=== PATIENT | female | born 1955 | race African-American/Black ===

== ENCOUNTER 2018-06-30 22:14 | Emergency (ER) | payer MEDICAID ==
[~2018-06-30] VITALS: Ht 162.6 cm; Wt 78.6 kg
[~2018-06-30 22:14] MED LIST: ASPIRIN; ATENOLOL; HCTZ; LORA1TAB; TYLENOL/CODEINE
[2018-06-30] MEDS ORDERED: MORPHINE SULFATE 10 MG/ML CPJ IM ONE (23:00)
[2018-07-01] MEDS ORDERED: KETOROLAC 60MG/2ML VIAL IM ONE (00:15)
[2018-07-01 01:26] VITALS: BP 139/91
== END 2018-07-01 01:42 | disposition home or self-care (01) ==
LOC: ER 23:46
DX: M25.522 Pain in left elbow (principal); I10 Essential (primary) hypertension; F12.10 Cannabis abuse, uncomplicated; Z98.890 Other specified postprocedural states; Z88.0 Allergy status to penicillin; Z79.82 Long term (current) use of aspirin
CPT/HCPCS: 73070; 96372; 99284; J1885; J2270; A4565

== ENCOUNTER 2021-10-14 17:26 | Inpatient (IN) | payer MEDICARE, MEDICAID ==
[~2021-10-14] VITALS: Ht 162.6 cm; Wt 77.0 kg
[2021-10-14] MEDS ORDERED: SODIUM CHLORIDE 0.9% 1000ML BAG (SEPSIS BOLUS) IV ONE (22:45)
[2021-10-14 23:34] LABS: BASOPHILS % 0.9 % (0.0-2.0); EOSINOPHILS % 0.9 % (0.0-5.0); HEMATOCRIT. 40.6 % (36.0-48.0); HEMOGLOBIN. 13.2 g/dL (12.0-16.0); LYMPHOCYTES % 16.7 % (20.0-50.0); MEAN CORPUSCULAR HEMOGLOBIN 26.3 pg (28.0-32.0); MEAN PLATELET VOLUME 7.4 fl (7.4-10.4); MONOCYTES % 7.4 % (2.0-8.0); NEUTROPHILS % 74.1 % (40.0-76.0); PLATELET 404 x1000/uL (130-400); RED BLOOD CELL COUNT 5.01 mill/uL (4.2-5.4); RED CELL DISTRIBUTION WIDTH 15.2 % (11.6-14.6)
[2021-10-14 23:38] LABS: CHLORIDE 105 mEq/L (98-107)
[2021-10-15 02:54] LABS: CLARITY URINE CLEAR (CLEAR); COLOR URINE YELLOW (YELLOW); KETONES URINE 3+ (NEGATIVE); LEUKOCYTE ESTERASE URINE 3+ (NEGATIVE); NITRITE URINE NEGATIVE (NEGATIVE); OCCULT BLOOD URINE NEGATIVE (NEGATIVE); PROTEIN URINE NEGATIVE (NEGATIVE); SPECIFIC GRAVITY URINE 1.014 (1.005-1.030)
[2021-10-15] MEDS ORDERED: ONDANSETRON HCL 4MG/2ML INJ IV PRN (08:45)
[2021-10-15] MEDS ORDERED: POTASSIUM CHLORIDE 20MEQ TABLET SR PO NR (08:45)
[2021-10-15] MEDS ORDERED: NALOXONE HCL 0.4MG/ML VIAL IV PRN (08:45)
[2021-10-15] MEDS: HYDROCODONE/ACETAMINOPHEN 5/325MG TABLET PO PRN ×2 (09:01→15:46)
[2021-10-15] MEDS ORDERED: LEVO500T89 MT (10:09)
[2021-10-15] MEDS ORDERED: SULF1TAB48 MT (10:09)
[2021-10-15] MEDS ORDERED: CEFTRIAXONE 1 G PREMIX 50 ML IV SCH (10:15)
[2021-10-15 10:39] LABS: *BARBITURATES SCREEN URINE NEGATIVE (NEGATIVE); *COCAINE SCREEN URINE NEGATIVE (NEGATIVE)
[2021-10-15 10:40] LABS: *BENZODIAZEPINES SCREEN URINE NEGATIVE (NEGATIVE); METHADONE URINE SCREEN NEGATIVE (NEGATIVE); OPIATES URINE SCREEN PRESUMTIVE POSITIVE (NEGATIVE)
[2021-10-15 10:41] LABS: *AMPHETAMINES SCREEN URINE NEGATIVE (NEGATIVE); CANNABINOID URINE SCREEN PRESUMTIVE POSITIVE (NEGATIVE); PHENCYCLIDINE URINE SCREEN NEGATIVE (NEGATIVE)
[2021-10-15] MEDS ORDERED: LEVOFLOXACIN 500MG PREMIX 100 ML IV SCH (12:00)
[2021-10-15 16:10] VITALS: BP 114/82
== END 2021-10-15 16:25 | disposition home health service (06) | DRG 720 ==
LOC: ER 17:26 → MICUSO 10-15 02:16
PROVIDERS: ADMIT Internal Medicine; ATTEND Internal Medicine
DX: A41.9 Sepsis, unspecified organism (principal); E43 Unspecified severe protein-calorie malnutrition; T81.89XA Other complications of procedures, not elsewhere classified, initial encounter; E87.6 Hypokalemia; F31.9 Bipolar disorder, unspecified; N39.0 Urinary tract infection, site not specified; F12.90 Cannabis use, unspecified, uncomplicated; Y83.8 Other surgical procedures as the cause of abnormal reaction of the patient, or of later complication, without mention of misadventure at the time of the procedure; Z88.0 Allergy status to penicillin; Z68.29 Body mass index [BMI] 29.0-29.9, adult; Z79.899 Other long term (current) drug therapy; Y92.89 Other specified places as the place of occurrence of the external cause; F19.10 Other psychoactive substance abuse, uncomplicated; R26.2 Difficulty in walking, not elsewhere classified
CPT/HCPCS: 36415; 72131; 80053; 80305; 81003; 83605; 84145; 85025; 86140; 93005; 99285; J1956; J7030

== ENCOUNTER 2024-05-25 05:40 | Inpatient (IN) | payer MEDICARE, OTHER ==
[~2024-05-25] VITALS: Ht 162.6 cm; Wt 70.3 kg
[~2024-05-25 05:40] MED LIST changes: +LEVO-65 MT
[2024-05-25 06:30] VITALS: O2SAT 99
[2024-05-25] MEDS: ONDANSETRON HCL 4MG/2ML INJ IV STA (06:50)
[2024-05-25] MEDS: MORPHINE SULFATE 4 MG/ML INJ (FOR IV/IM USE) IV STA (06:51)
[2024-05-25 07:44] LABS: CHLORIDE 104 mEq/L (98-107); POTASSIUM 4.3 mEq/L (3.5-5.1); SODIUM 140 mEq/L (136-145)
[2024-05-25 07:45] LABS: BASOPHILS % 0.8 % (0.0-2.0); CALCIUM 9.5 mg/dL (8.7-10.4); CARBON DIOXIDE 27 mEq/L (21-32); EOSINOPHILS % 1.6 % (0.0-5.0); HEMATOCRIT. 33.3 % (36.0-48.0); HEMOGLOBIN. 11.1 g/dL (12.0-16.0); LYMPHOCYTES % 17.4 % (20.0-50.0); MEAN CORPUSCULAR HEMOGLOBIN 28.9 pg (28.0-32.0); MEAN CORPUSCULAR HGB CONC 33.4 g/dL (31.0-37.0); MEAN CORPUSCULAR VOLUME 86.4 fL (81.0-99.0); MEAN PLATELET VOLUME 7.1 fl (7.4-10.4); MONOCYTES % 6.8 % (2.0-8.0); NEUTROPHILS % 73.4 % (40.0-76.0); PLATELET 534 x1000/uL (130-400); RED BLOOD CELL COUNT 3.85 mill/uL (4.2-5.4); RED CELL DISTRIBUTION WIDTH 14.6 % (11.6-14.6); WHITE BLOOD COUNT 10.6 x1000/uL (4.5-11.0)
[2024-05-25 07:50] LABS: CREATININE 0.7 mg/dL (0.6-1.0); GLUCOSE 90 mg/dL (70-105); UREA NITROGEN BLOOD 9 mg/dL (9-23)
[2024-05-25 07:51] LABS: INR 1.1; PROTHROMBIN TIME 12.4 sec (9.6-11.0)
[2024-05-25] MEDS ORDERED: MORPHINE SULFATE 4 MG/ML INJ (FOR IV/IM USE) IV SCH (08:45)
[2024-05-25] MEDS: SODIUM CHLORIDE 0.9% 1000ML BAG (SEPSIS BOLUS) IV ONE (09:13)
[2024-05-25] MEDS: VANCOMYCIN 1G PREMIX 200 ML IV ONE (09:16)
[2024-05-25 10:01] LABS: INR 1.2; PROTHROMBIN TIME 12.8 sec (9.6-11.0)
[2024-05-25] MEDS: PIPERACILLIN/TAZO 3.375G/50ML 50 ML IV ONE (10:12)
[2024-05-25 11:18] LABS: CLARITY URINE CLOUDY (CLEAR); COLOR URINE YELLOW (YELLOW); GLUCOSE URINE NEGATIVE (NEGATIVE); KETONES URINE TRACE (NEGATIVE); LEUKOCYTE ESTERASE URINE 3+ (NEGATIVE); NITRITE URINE NEGATIVE (NEGATIVE); OCCULT BLOOD URINE TRACE (NEGATIVE); PH URINE 6.5 (4.5-8.0); PROTEIN URINE NEGATIVE (NEGATIVE); SPECIFIC GRAVITY URINE 1.008 (1.005-1.030); UROBILINOGEN URINE 0.2 E.U./dL (0.2-1.0)
[2024-05-25 11:38] LABS: SQUAMOUS EPITHELIAL CELL URINE 2+ /lpf (RARE/1+)
[2024-05-25 11:47] LABS: WBC URINE 25-50 /hpf (0-2)
[2024-05-25 11:50] LABS: RBC URINE 0-2 /hpf (0-2)
[2024-05-25 11:51] LABS: BACTERIA URINE 4+
[2024-05-25] MEDS: MORPHINE SULFATE 4 MG/ML INJ (FOR IV/IM USE) IV NR (12:03)
[2024-05-25] MEDS: MORPHINE SULFATE 2 MG/ML INJ (NOT FOR IM USE) IV PRN (14:51)
[2024-05-25] MEDS ORDERED: NALOXONE HCL 0.4MG/ML VIAL IV PRN (17:30)
[2024-05-25] MEDS: OXYCODONE HCL/ACETAMINOPHEN 5/325MG TABLET PO PRN (18:58)
[2024-05-25 19:30] VITALS: BP 125/63; PULSE 93; RESP 17; TEMP 97.7
[2024-05-25 20:00] VITALS: BP 103/54; PULSE 104; RESP 20; TEMP 98
[2024-05-25] MEDS: HYDROCODONE/ACETAMINOPHEN 5/325MG TABLET PO PRN (21:54)
[2024-05-25] MEDS: VANCOMYCIN 500MG/100ML IV SCH (22:57)
[2024-05-26] VITALS: BP 137/73; PULSE 86; RESP 19; TEMP 98.6
[2024-05-26] MEDS: ZOLPIDEM TARTRATE 5MG TABLET PO PRN (00:10)
[2024-05-26] MEDS ORDERED: ONDANSETRON HCL 4MG/2ML INJ IV PRN (00:45)
[2024-05-26] MEDS ORDERED: ACETAMINOPHEN 325MG TABLET PO PRN (00:45)
[2024-05-26] MEDS ORDERED: ZOLPIDEM TARTRATE 5MG TABLET PO PRN (00:45)
[2024-05-26] MEDS: SODIUM CHLORIDE 0.9% 1,000 ML IV SCH (03:33)
[2024-05-26 04:00] VITALS: BP 138/73; PULSE 92; RESP 20; TEMP 98.1
[2024-05-26 08:00] VITALS: BP 127/74; PULSE 92; RESP 18; TEMP 98.2
[2024-05-26] MEDS: ENOXAPARIN 40MG/0.4ML SYR SUBCUT SCH (09:35)
[2024-05-26 12:00] VITALS: BP 138/69; PULSE 87; RESP 18; TEMP 97.6
[2024-05-26] MEDS ORDERED: DES150 (15:31)
[2024-05-26] MEDS ORDERED: OXYC5TAB3 (15:31)
[2024-05-26] MEDS ORDERED: OXYC1TAB12 (15:31)
[2024-05-26] MEDS ORDERED: LIDO35.421 (15:31)
[2024-05-26] MEDS ORDERED: KETO10TA2 (15:31)
[2024-05-26] MEDS ORDERED: FAMO20TA8 (15:31)
[2024-05-26] MEDS ORDERED: BENA-8 (15:31)
[2024-05-26] MEDS ORDERED: GABA-534 (15:31)
[2024-05-26] MEDS ORDERED: DOXY100T2 (15:31)
[2024-05-26] MEDS ORDERED: POTA-204 (15:31)
[2024-05-26] MEDS ORDERED: DOXY100C5 (15:31)
[2024-05-26] MEDS ORDERED: BIMA2.5D4 (15:31)
[2024-05-26] MEDS ORDERED: ASPI-1160 (15:31)
[2024-05-26 16:00] VITALS: BP 158/85; PULSE 89; RESP 20; TEMP 98.8
[2024-05-26 20:00] VITALS: BP 144/90; PULSE 103; RESP 19; TEMP 98.1
[2024-05-27 04:00] VITALS: BP 132/80; PULSE 95; RESP 20; TEMP 97.9
[2024-05-27 06:52] LABS: CHLORIDE 107 mEq/L (98-107); POTASSIUM 3.3 mEq/L (3.5-5.1); SODIUM 140 mEq/L (136-145)
[2024-05-27 06:53] LABS: CARBON DIOXIDE 27 mEq/L (21-32)
[2024-05-27 06:58] LABS: CREATININE 0.5 mg/dL (0.6-1.0); GLUCOSE 99 mg/dL (70-105)
[2024-05-27 07:02] LABS: BASOPHILS % 0.8 % (0.0-2.0); EOSINOPHILS % 2.3 % (0.0-5.0); HEMATOCRIT. 28.5 % (36.0-48.0); HEMOGLOBIN. 9.3 g/dL (12.0-16.0); LYMPHOCYTES % 18.7 % (20.0-50.0); MEAN CORPUSCULAR HEMOGLOBIN 27.9 pg (28.0-32.0); MEAN CORPUSCULAR HGB CONC 32.5 g/dL (31.0-37.0); MEAN CORPUSCULAR VOLUME 85.8 fL (81.0-99.0); MEAN PLATELET VOLUME 7.2 fl (7.4-10.4); MONOCYTES % 7.3 % (2.0-8.0); NEUTROPHILS % 70.9 % (40.0-76.0); PLATELET 447 x1000/uL (130-400); RED BLOOD CELL COUNT 3.32 mill/uL (4.2-5.4); RED CELL DISTRIBUTION WIDTH 14.5 % (11.6-14.6); WHITE BLOOD COUNT 7.6 x1000/uL (4.5-11.0)
[2024-05-27 07:15] LABS: UREA NITROGEN BLOOD < 5 mg/dL (9-23)
[2024-05-27 08:00] VITALS: BP 139/76; PULSE 87; RESP 18; TEMP 98
[2024-05-27 12:35] VITALS: BP 138/120; PULSE 87; RESP 18; TEMP 97.9
[2024-05-27 13:05] VITALS: BP 131/83
[2024-05-27 16:00] VITALS: BP_SYST 139; BP_DIAS 71; BP_DIAS 78; PULSE 86; RESP 18; TEMP 98.1
[2024-05-27] MEDS: GABAPENTIN 400MG CAPSULE PO SCH (16:16)
[2024-05-27] MEDS: DIPHENHYDRAMINE 50MG CAPSULE PO PRN (16:17)
[2024-05-27] MEDS ORDERED: ASPI-1160 PO (19:30)
[2024-05-27] MEDS ORDERED: DOXY100C5 PO (19:30)
[2024-05-27] MEDS ORDERED: OXYC1TAB12 PO (19:33)
[2024-05-27] MEDS ORDERED: LIDO35.421 TP (19:33)
[2024-05-27] MEDS ORDERED: BENA-8 PO (19:33)
[2024-05-27] MEDS ORDERED: OXYC5TAB3 PO (19:33)
[2024-05-27] MEDS ORDERED: POTA-204 PO (19:33)
[2024-05-27] MEDS ORDERED: BIMA2.5D4 EACH EAR (19:33)
[2024-05-27] MEDS ORDERED: FAMO20TA8 PO (19:35)
[2024-05-27] MEDS ORDERED: DES150 PO (19:35)
[2024-05-27] MEDS ORDERED: GABA-534 PO (19:35)
[2024-05-27] MEDS ORDERED: MEMA5TAB42 PO (19:35)
[2024-05-27 20:00] VITALS: BP 151/100; PULSE 72; RESP 20; TEMP 97.6
[2024-05-27] MEDS: VANCOMYCIN 750MG/150ML (BAXTER) IV SCH (20:33)
[2024-05-27] MEDS: CLONIDINE 0.1MG TABLET PO PRN (23:40)
[2024-05-28] VITALS: BP 161/84; PULSE 83; RESP 20; TEMP 98.6
[2024-05-28 04:00] VITALS: BP 161/84; PULSE 83; RESP 20; TEMP 98.6
[2024-05-28 08:00] VITALS: BP 120/79; PULSE 79; RESP 20; TEMP 97.6
[2024-05-28 09:39] VITALS: BP 120/79; PULSE 79; RESP 20
== END 2024-05-28 11:20 | disposition left against medical advice (07) | DRG 721 ==
LOC: ER 05:47 → 5WST 10:45 → EDBEDREQ 10:55 → EDBEDREQSVC 10:55 → EDBEDREQTM 10:55 → 7WST 18:20
PROVIDERS: ADMIT Internal Medicine; ATTEND Internal Medicine
DX: T81.41XA Infection following a procedure, superficial incisional surgical site, initial encounter (principal); T81.31XA Disruption of external operation (surgical) wound, not elsewhere classified, initial encounter; I11.9 Hypertensive heart disease without heart failure; F31.9 Bipolar disorder, unspecified; L03.114 Cellulitis of left upper limb; F99 Mental disorder, not otherwise specified; Z53.29 Procedure and treatment not carried out because of patient's decision for other reasons; Y83.8 Other surgical procedures as the cause of abnormal reaction of the patient, or of later complication, without mention of misadventure at the time of the procedure; Z88.0 Allergy status to penicillin; Y92.89 Other specified places as the place of occurrence of the external cause
CPT/HCPCS: 36415; 71045; 73070; 73200; 80048; 80202; 81003; 82962; 83605; 84145; 85025; 93005; 93971; 99291; C1893; J1650; J2270; J2405; J2543; J3370; J7030; Q0163

== ENCOUNTER 2025-04-29 12:30 | Emergency (ER) | payer MEDICARE, OTHER ==
[~2025-04-29] VITALS: Ht 162.6 cm; Wt 65.0 kg
[~2025-04-29 12:30] MED LIST changes: +ASPI-1160 PO; -ASPIRIN; -ATENOLOL; +BENA-8 PO; +BIMA2.5D4 EACH EAR; +DES150 PO; +DOXY100C5 PO; +FAMO20TA8 PO; +GABA-534 PO; -HCTZ; -LEVO-65 MT; +LIDO35.421 TP; -LORA1TAB; +MEMA5TAB16 PO; +OXYC1TAB12 PO; +OXYC5TAB3 PO; +POTA-204 PO; -TYLENOL/CODEINE; +dilaudid
[2025-04-29 12:38] VITALS: O2SAT 98
[2025-04-29] MEDS ORDERED: OXYC-662 MT (14:24)
[2025-04-29] MEDS: OXYCODONE HCL/ACETAMINOPHEN 5/325MG TABLET PO ONE (15:02)
[2025-04-29 15:54] VITALS: BP 144/86; PULSE 74; RESP 16; TEMP 37.1; O2SAT 98
== END 2025-04-29 16:08 | disposition home or self-care (01) ==
LOC: ER 12:30
DX: G89.29 Other chronic pain (principal); M25.522 Pain in left elbow; I10 Essential (primary) hypertension; F31.9 Bipolar disorder, unspecified; Z79.899 Other long term (current) drug therapy; Z86.73 Personal history of transient ischemic attack (TIA), and cerebral infarction without residual deficits; Z88.0 Allergy status to penicillin; Z98.890 Other specified postprocedural states
CPT/HCPCS: 99283